=== PATIENT | male | born 1970 | race American Indian/Alaskan Native ===

== ENCOUNTER 2016-09-24 08:12 | Emergency (ER) | payer MEDICAID, OTHER ==
[2016-09-24 08:16] VITALS: BMI 24.4
[2016-09-24 08:43] VITALS: RESP 18; O2SAT 98
[2016-09-24 08:44] VITALS: TEMP 99.5
[2016-09-24] MEDS ORDERED: Sodium Chloride 0.9% 1,000 ML IV STA (08:45)
--- NOTE | 2016-09-24 08:51 | ED PDOC ---
HPI: CCC, URI, Sore Throat Time Seen by Provider: 09/24/16 08:27 Chief Complaint (Nursing): Cough, Cold, Congestion Chief Complaint (Provider): Cough, Cold, Congestion History Per: Patient History/Exam Limitations: no limitations Onset/Duration Of Symptoms: Days Current Symptoms Are (Timing): Still Present Location Of Pain: Throat, Diffuse Myalgias Sick Contacts (Context): None Associated Symptoms: Fever, Chills, Cough Ear Symptoms: Bilateral: None Severity: Mild Additional Complaint(s): Patient is a 46 year old male who presents to ED via EMS for evaluation of cough , chills, fever, sore throat, diarrhea and vomiting for 2 days. Patient reports multiple episodes of diarrhea but only 2 episodes of vomiting yesterday. Denies chest pain, SOB, headache or abdominal pain. PMD: Dr. Alanis Past Medical History Reviewed: Historical Data, Nursing Documentation, Vital Signs Vital Signs: Last Vital Signs Temp 99.5 F 09/24/16 08:39 Pulse 107 H 09/24/16 08:39 Resp 18 09/24/16 08:39 BP 101/75 09/24/16 08:39 Pulse Ox 98 09/24/16 09:22 - Medical History PMH: Malignancy (colon CA), Pneumonia - Surgical History Other surgeries: orthopedic - Family History Family History: States: No Known Family Hx - Living Arrangements Living Arrangements: Other (group home) - Allergies Allergies/Adverse Reactions: Allergies Allergy/AdvReac Type Severity Reaction Status Date / Time No Known Allergies Allergy Verified 09/24/16 08:18 Review of Systems ROS Statement: Except As Marked, All Systems Reviewed And Found Negative Constitutional: Positive for: Fever, Chills ENT: Positive for: Throat Pain Cardiovascular: Negative for: Palpitations Respiratory: Positive for: Cough Gastrointestinal: Positive for: Nausea, Vomiting, Diarrhea. Negative for: Abdominal Pain Musculoskeletal: Negative for: Neck Pain Skin: Negative for: Rash Neurological: Negative for: Weakness, Numbness, Headache, Dizziness Physical Exam - Reviewed Nursing Documentation Reviewed: Yes Vital Signs Reviewed: Yes - Physical Exam Appears: Positive for: Non-toxic, No Acute Distress Skin: Positive for: Normal Color, Warm. Negative for: Rash Eye Exam: Positive for: Normal appearance ENT: Positive for: Pharyngeal Erythema (mild). Negative for: Tonsillar Exudate , Tonsillar Swelling Neck: Positive for: Normal, Painless ROM, Supple Cardiovascular/Chest: Positive for: Regular Rate, Rhythm, Chest Non Tender. Negative for: Murmur Respiratory: Positive for: Normal Breath Sounds. Negative for: Respiratory Distress Extremity: Positive for: Normal ROM Neurologic/Psych: Positive for: Alert, Oriented - Laboratory Results Result Diagrams: 09/24/16 09:13 09/24/16 09:13 - ECG O2 Sat by Pulse Oximetry: 98 (RA) Pulse Ox Interpretation: Normal - Radiology X-Ray: Interpreted by Me, Viewed By Me X-Ray Interpretation: No Acute Disease Medical Decision Making Medical Decision Making: Time: 829 Initial impression: Flu, gastroenteritis , less likely pneumonia Initial plan: -- BMP -- CBC -- CXR -- NSF, Toradol and Zofran -- Flu swab -- Rapid strep Scribe Attestation: Documented by Iraida Keating acting as a scribe for Jaelyn Benitez MD MD Scribe Attestation: All medical record entries made by the Scribe were at my direction and personally dictated by me. I have reviewed the chart and agree that the record accurately reflects my personal performance of the history, physical exam, medical decision making, and the department course for this patient. I have also personally directed, reviewed, and agree with the discharge instructions and disposition. Disposition - Clinical Impression Clinical Impression: Upper respiratory tract infection, Diarrhea - Patient ED Disposition Is Patient to be Admitted: No Doctor Will See Patient In The: Office Counseled Patient/Family Regarding: Studies Performed, Diagnosis, Need For Followup - Disposition Referrals: [facility] [Outside] Disposition: Routine/Home Disposition Time: 10:33 Condition: GOOD Additional Instructions: Follow up with your PCP in 2-3 days. Instructions: Viral Syndrome (ED)
[2016-09-24 09:29] LABS: BASO % 0.7 % (0.0-2.0); EOS % 0.1 % (0.0-4.0); HEMATOCRIT 39.8 % (35.0-51.0); LYMPH # 1.2 K/uL (1.0-4.3); LYMPH % 33.9 % (20.0-40.0); MEAN CELL VOLUME 96.1 fl (80.0-94.0); MEAN CORPUSCULAR HEMOGLOBIN 32.6 pg (27.0-31.0); MEAN CORPUSCULAR HGB CONC 33.9 g/dL (33.0-37.0); MEAN PLATELET VOLUME 7.4 fl (7.2-11.7); MONO # 0.8 K/uL (0.0-0.8); MONO % 21.8 % (0.0-10.0); NEUT # 1.6 K/uL (1.8-7.0); NEUT % 43.5 % (50.0-75.0); NRBC % 0.1 % (0.0-0.0); PLATELET COUNT 184 K/uL (130-400); RED CELL DISTRIBUTION WIDTH 12.9 % (11.5-14.5); WHITE BLOOD COUNT 3.6 K/uL (4.8-10.8)
[2016-09-24 09:31] LABS: BLOOD UREA NITROGEN 13 mg/dl (9-20); CARBON DIOXIDE 23 mmol/L (22-30); CHLORIDE 101 mmol/L (98-107); GFR AFRICAN-AMERICAN > 60; GLUCOSE,RANDOM 106 mg/dL (75-110); POTASSIUM 3.5 MMOL/L (3.6-5.0); SODIUM 138 mmol/l (132-148)
--- NOTE | 2016-09-24 10:34 | RAD ---
HISTORY: cough fever COMPARISON: No prior. FINDINGS: LUNGS: No active pulmonary disease. PLEURA: No significant pleural effusion identified, no pneumothorax apparent. CARDIOVASCULAR: Normal. OSSEOUS STRUCTURES: No significant abnormalities. VISUALIZED UPPER ABDOMEN: Normal. OTHER FINDINGS: None. IMPRESSION: No active disease.
[2016-09-24 10:47] LABS: NEUTROPHIL 40 % (42-75); REACTIVE LYMPHOCYTES 6 % (0-0); TOTAL CELLS COUNTED 100
[2016-09-24 12:11] VITALS: BP 122/78; PULSE 78
== END 2016-09-24 11:25 | disposition home or self-care (01) ==
LOC: H.ER 08:12
DX: J06.9 Acute upper respiratory infection, unspecified (principal); R05 Cough; R19.7 Diarrhea, unspecified; R50.9 Fever, unspecified; J02.9 Acute pharyngitis, unspecified; Z85.038 Personal history of other malignant neoplasm of large intestine